=== PATIENT | male | born 1950 | race Asian ===

== ENCOUNTER 2017-07-31 15:58 | Emergency (ER) | payer MEDICARE ==
[~2017-07-31] VITALS: Ht 162.6 cm; Wt 65.9 kg
[2017-07-31] MEDS ORDERED: TELM40 PO (16:08)
[2017-07-31] MEDS ORDERED: TAMS0.4C32 PO (16:08)
[2017-07-31] MEDS ORDERED: BACITRACIN 0.9 GM PACKET OINTMENT TP ONE (16:30)
[2017-07-31] MEDS ORDERED: LIDOCAINE HCL 1% 10 ML VIAL ONE (17:03)
[2017-07-31] MEDS ORDERED: CEPHALEXIN MONOHYDRATE 500 MG CAPSULE PO ONE (18:00)
[2017-07-31] MEDS ORDERED: PERTUSS(ACELL),DIPH,TET VAC/PF 0.5 ML VIAL IM ONE (18:00)
[2017-07-31 18:09] VITALS: BP 138/81
== END 2017-07-31 18:11 | disposition home or self-care (01) ==
LOC: EEVIPCON 16:00 → EMS 16:00 → EDBD 16:00 → EMS 18:11
DX: S61.411A Laceration without foreign body of right hand, initial encounter (principal); I10 Essential (primary) hypertension; W26.8XXA Contact with other sharp object(s), not elsewhere classified, initial encounter; Y93.89 Activity, other specified; Y92.89 Other specified places as the place of occurrence of the external cause; Y99.8 Other external cause status
CPT/HCPCS: 12002; 73130; 90471; 90715; 99284; J3490

== ENCOUNTER → 2017-08-25 | Outpatient (CLI) | payer MEDICARE, BC ==
[~2017-08-25] MED LIST: TAMS0.4C32 PO; TELM40 PO
== END | disposition home or self-care (01) ==
LOC: RADPV 08:47
PROVIDERS: ATTEND Orthopaedic Surgery Hand Surgery
DX: S52.611D Displaced fracture of right ulna styloid process, subsequent encounter for closed fracture with routine healing (principal); X58.XXXD Exposure to other specified factors, subsequent encounter